=== PATIENT | male | born 2000 | race African-American/Black ===

== ENCOUNTER 2022-03-08 02:41 | Emergency (ER) | payer OTHER ==
[2022-03-08] MEDS ORDERED: Ondansetron PF 4 MG/2 ML Vial ONE (03:06)
[2022-03-08 03:08] LABS: #Basophils 0.1 10x3/uL (0.0-0.2); #Eosinphils 0.2 10x3/uL (0.0-0.5); #Monocytes 0.6 10x3/uL (0.0-1.1); #Neutrophils 5.2 10x3/uL (1.5-8.4); %Basophils 0.5 % (0.0-2.0); %Eosinophils 2.3 % (0.0-6.0); %Lymphocytes 39.2 % (18.0-47.0); %Neutrophils 51.7 % (40.0-75.0); Mean Corpuscular HGB CONC 34.6 g/dL (32.0-36.0); Mean Corpuscular Hemoglobin 29.6 pg (27.0-33.0); Mean Corpuscular Volume 85.6 fl (81.2-95.1); Mean Platelet Volume 10.4 fl (7.4-10.4); Platelet Count 241 10x3/uL (150-450); RBC Distribution Width 13.1 % (11.5-14.5); White Blood Cell (WBC) Count 10.1 10x3/uL (3.5-10.5)
[2022-03-08 03:19] LABS: Acetaminophen Less than 10.0 mcg/mL (10.0-30.0); Alcohol 136 mg/dL (Less than 10); Salicylate Less than 8.0 mg/dL (15.0-30.0)
[2022-03-08 03:28] LABS: Amphetamine Not Detected (NotDetected); Barbiturates Screen Not Detected (NotDetected); Benzodiazepine Screen Not Detected (NotDetected); Cocaine Metabolite Screen Not Detected (NotDetected); Methadone Not Detected (NotDetected); Methamphetamine Not Detected (NotDetected); Opiate Screen Not Detected (NotDetected); Oxycodone Screen Not Detected (NotDetected); Phencyclidine (PCP) Not Detected (NotDetected); THC/Cannabinoid Screen Detected (NotDetected); Tricyclic Screen Not Detected (NotDetected)
[2022-03-08 03:34] LABS: ALT (SGPT) 11 U/L (8-55); AST (SGOT) 29 U/L (5-34); Albumin 4.8 g/dL (3.5-5.0); Alkaline Phosphatase 92 U/L (40-110); Anion Gap 19 mmol/L (10-20); BUN (Urea Nitrogen) 8 mg/dL (8.9-20.6); Bilirubin, Total 0.4 mg/dL (0.2-1.2); Calc. Creatinine Clearance 0 mL/min (70-130); Calcium 9.8 mg/dL (7.8-10.44); Carbon Dioxide 24 mmol/L (22-29); Chloride 105 mmol/L (98-107); Globulin 3.2 g/dL (2.4-3.5); Glucose 83 mg/dL (70-105); Potassium 3.6 mmol/L (3.5-5.1); Sodium 144 mmol/L (136-145)
[2022-03-08 03:44] LABS: PTT 27.5 sec (22.0-33.0)
[2022-03-08] MEDS ORDERED: Famotidine/PF 20 mg/2ml Vial ONE (05:20)
[2022-03-08] MEDS ORDERED: Pantoprazole 40 MG VIAL ONE (05:21)
[2022-03-08 05:58] LABS: SARS-CoV-2 NAA Rapid Test Not Detected (NotDetected)
[2022-03-08 09:13] LABS: Acetaminophen Less than 10.0 mcg/mL (10.0-30.0); Alcohol 35 mg/dL (Less than 10); Salicylate Less than 8.0 mg/dL (15.0-30.0)
== END 2022-03-08 14:29 ==
LOC: CSHERS 02:41 → EDBD 02:41 → CSHERS 14:29
DX: T14.91XA Suicide attempt, initial encounter (principal); Z20.822 Contact with and (suspected) exposure to COVID-19
CPT/HCPCS: 80053; 80306; 80307; 85025; 85610; 85730; 93005; 96374; 96375; C9113; J2405; S0028; U0002

== ENCOUNTER 2022-10-02 10:01 | Emergency (ER) | payer OTHER | END 2022-10-02 10:33 | disposition home or self-care (01) | LOC: CSHERS 10:01 | DX: B34.9 Viral infection, unspecified (principal) | CPT/HCPCS: 99283 ==